=== PATIENT | male | born 1990 | race Hispanic/Latino ===

== ENCOUNTER 2019-04-06 08:41 | Emergency (ER) | payer OTHER, SELFPAY ==
--- NOTE | 2019-04-06 09:42 | CT ---
CT HEAD WITHOUT IV CONTRAST COMPARISON: 11/08/2017 HISTORY: Headaches with difficulty speaking. Correlation and nausea and vomiting. Trauma. TECHNIQUE: Axial CT imaging at 5 mm intervals from vertex through skull base without contrast FINDINGS: There is no evidence of an acute infarction, hemorrhage, mass effect, or midline shift. The ventricul ar system is normal in size, shape, and position. Visualized paranasal sinuses are clear. Osseous structures appear intact.No calvarial fracture is seen. CT head is stable compared to study on 11/08/2017. IMPRESSION: 1. No acute intracranial abnormality demonstrated.
== END 2019-04-06 09:58 | disposition home or self-care (01) ==
LOC: ERS 08:41
DX: F07.81 Postconcussional syndrome (principal)
CPT/HCPCS: 70450

== ENCOUNTER 2019-06-29 16:56 | Emergency (ER) | payer OTHER, SELFPAY ==
[~2019-06-29 16:56] MED LIST: Iopamidol-370 76% 500 ML 1 ML ONE
--- NOTE | 2019-06-29 20:21 | RAD ---
Exam: 1 view abdomen HISTORY: Evaluate for foreign body COMPARISON: None FINDINGS: Nonspecific bowel gas pattern. No suspicious densities in the abdomen and pelvis. No pneumo peritoneum on this supine projection. Oval 6.7 cm lucency projecting over the left hemicolon pelvis. Possibility of a foreign body, radiolucent cannot be excluded. No osseous abnormalities. IMPRESSION: Oval lucency projects over the left hemipelvis, suggestive a radiolucent foreign body. Results of study discussed with Dr. Gayle 06/29/2019 at 8:20 PM Code CR Transcribed Date/Time: 06/29/2019 8:31 PM
--- NOTE | 2019-06-29 20:59 | CT ---
Exam: Pelvic CT with contrast HISTORY: Evaluate for foreign body. COMPARISON: None Correlation: 1 view abdomen 06/29/2019 FINDINGS: Visualized pelvic structures are unremarkable. Symmetric attenuation of the visualized muscles Unremarkable urinary bladder. Limited evaluation due to decompressed urinary bladder No evidence of abnormality with regards the presacral fat. Visualized osseous structures are unremark able Visualized alimentary canal is unremarkable. No evidence of bowel distention or dilatation. The previ ously noted oval lucency along the left aspect of the pelvis is not appreciated. Specifically, there does not appear to be a radiolucent foreign body within the distal descending colon, sigmoid co manuel or rectum. Normal caliber appendix is noted IMPRESSION: No evidence of a radiolucent foreign body in the left hemicolon. Results of study discussed with Dr. Gayle 06/29/2019 8:58 PM Code CR Transcribed Date/Time: 06/29/2019 9:13 PM
== END 2019-06-29 21:35 ==
LOC: ERS 16:56
DX: Z02.89 Encounter for other administrative examinations (principal); F41.9 Anxiety disorder, unspecified
CPT/HCPCS: 72193; 74018; Q9967

== ENCOUNTER 2020-06-23 04:37 | Emergency (ER) | payer SELFPAY ==
[2020-06-23] MEDS ORDERED: Sulfameth/Trimethoprim DS 800-160mg TAB ONE (04:52)
[2020-06-23] MEDS ORDERED: Boostrix 0.5 ML (Tdap) VIAL ONE (04:52)
[2020-06-23] MEDS ORDERED: Ketorolac Tromethamine 30 MG/ML VIAL ONE (04:52)
[2020-06-23] MEDS ORDERED: Bacitracin 1 PK ONE (05:38)
--- NOTE | 2020-06-23 08:35 | RAD ---
LEFT ANKLE 3 VIEWS: Date: 06/23/2020 HISTORY: Trauma. Left ankle pain. FINDINGS/IMPRESSION: The ankle mortise is maintained. No acute fracture or dislocation is identified. POS: JESIKA
--- NOTE | 2020-06-23 08:49 | RAD ---
LEFT SHOULDER 3 VIEWS; Date: 06/23/2020 HISTORY: Trauma. Left shoulder pain. FINDINGS/IMPRESSION: No acute fracture or dislocation is identified. POS: JESIKA
== END 2020-06-23 05:53 | disposition home or self-care (01) ==
LOC: ERS 04:37
DX: S91.032A Puncture wound without foreign body, left ankle, initial encounter (principal); S40.012A Contusion of left shoulder, initial encounter; Z87.891 Personal history of nicotine dependence; V89.2XXA Person injured in unspecified motor-vehicle accident, traffic, initial encounter
CPT/HCPCS: 90471; 90715; 96372; J1885

== ENCOUNTER 2022-01-18 22:08 | Emergency (ER) | payer SELFPAY ==
[2022-01-18] MEDS ORDERED: Ketorolac Tromethamine 30 MG/ML VIAL ONE (23:31)
== END 2022-01-19 00:01 | disposition home or self-care (01) ==
LOC: ERS 22:08
DX: M79.671 Pain in right foot (principal); G89.29 Other chronic pain
CPT/HCPCS: 96372; 99283; J1885